=== PATIENT | male | born 1975 | race Caucasian/White ===

== ENCOUNTER 2016-09-05 17:35 | Emergency (ER) | payer OTHER ==
[~2016-09-05] VITALS: Ht 185.4 cm; Wt 129.6 kg
[~2016-09-05 17:35] MED LIST: IBUP800T28 PO; LOSA100T29 PO; NAPR500T PO
[2016-09-05 17:38] VITALS: BP 152/92; PULSE 79; RESP 20; O2SAT 96
--- NOTE | 2016-09-05 17:45 | ED.REPORT ---
HPI-Chest Pain Under 40 Date of Service Sep 05, 2016 ED Provider: Keo Jonse DO A 41 year old male with a history of smoking and hypertension is referred to the ED from Urgent Care complaining of substernal chest pain and back pain. The pain is concentrated in the middle of his chest and back and is rated at a 7/10 at its worse. The pt noticed the pain last week, stating that it began suddenly and has been occurring intermittently since. The pain is not worsened by eating or exertion. His occupation requires movement, so he is concerned that he may have injured himself through this. The pt has a family history of hypertension and cardiac disease. He denies alcohol use or pancreatic disease, as well as lower extremity edema. His last meal was at 14:00. The pt drinks coffee but denies chronic medication use. Nursing Notes Stated Complaint: LAB WORK Chief Complaint: Chest Pain Nursing Notes Reviewed: Yes Allergies: Coded Allergies: [place] (Verified Allergy, Severe, mouth swelling, 09/19/09) Anderson Drew Oil (Verified Allergy, Severe, Asthma, 09/19/09) [place] (Verified Allergy, Severe, Oral Swelling, 09/19/09) Scheduled Naproxen-Expunged Drug, Do Not Renew! (Naprosyn-Expunged Drug, Do Not Renew!) 500 Mg Tablet 500 MG PO BID Scheduled PRN Ibuprofen (Ibuprofen) 800 Mg Tablet 800 MG PO TID PRN PRN For Pain Miscellaneous Medications Losartan Potassium (Losartan Potassium) 100 Mg Tablet 100 MG PO General Time Seen by MD: 17:45 Chief Complaint Chest pain Hx Obtained From: Patient Arrived By: Walk-in Sudden in Onset?: Yes Onset Occurred: 1 week ago Symptom Duration: Intermittent Recent Healthcare: No recent hospitalization, Recent doctor visit Similar Sx Previous: No Past Medical History Past Medical History Reports: Hypertension Past Surgical History unspecified Family History hypertension cardiac disease Smoking History Current Every Day Smoker (3/4 pack per day) Social History Alcohol Use: Denies alcohol use Ambulatory Status Independent Review of Systems Constitutional: Denies: Fever Respiratory: Denies: Non-productive cough, Shortness of breath Cardiovascular: Reports: Chest pain, Denies: Edema GI: Denies: Abdominal pain Musculoskeletal: Reports: Back pain Skin: Denies Rash Complete sys rev & neg: except as marked. Physical Exam Initial Vital Signs Vital Signs (First) Date Time Temp Pulse Resp B/P Pulse Ox O2 Delivery O2 Flow Rate FiO2 09/05/16 17:38 36.3 79 20 152/92 96 09/05/16 17:47 Room Air Initial VS: Reviewed General/Constitutional: Awake, Alert Respiratory / Chest: Atraumatic, Breath sounds NL, Breath sounds = bilat, No respiratory distress no reproducible chest pain Cardiovascular: Heart rate NL, Regular rhythm, Heart sounds NL Neck: Atraumatic, Supple, Full range of motion Abdomen: Atraumatic, Soft, Non-tender no epigastric tenderness to palpation Back: Atraumatic, Full range of motion Lower Extremity / Pelvis / MS: Atraumatic, Full range of motion Skin: Atraumatic, Color NL, No rash, Warm, Dry Neurologic: Oriented X3, Speech NL, No motor deficits, No sensory deficits Psychiatric: Affect NL, Mood NL Head / Eyes: Atraumatic, Normocephalic, PERRL, EOMI ENT: Atraumatic, Airway patent, Mucous membranes moist Upper Extremity / MS: Atraumatic, Full range of motion Interpretation & Diagnostics Interpretation & Diagnostics: Chest/Abdomen CT: IMPRESSION: 1. No acute process. No evidence of aortic dissection, nor aneurysm. 2. Right pleural nodules as described above; followup is recommended as below. Fleischner Society criteria for SOLID lung nodule followup. Nodule size (mm)Low-risk patientHigh-risk [id number] follow-up neededFollow-up at 12 mo; if no change, no further follow-up>4-7Evtric-qe CT at 12 mo; if no change, no further follow-up needed.Initial follow-up CT at 6-12 mo, then 18-24 mo if no change. >6-8Initial follow-up CT at 6-12 mo, then 18-24 mo if no change. Initial follow-up CT at 3-6 mo, then 9-12 mo and 24 mo if no change. >8Follow-up CT at 3, 9, 24 mo. Or PET and/or biopsy.Same as for low-risk pts. Dictated by: Huan Montez M.D. on 09/05/2016 at 19:11 Approved by: Huan Montez M.D. on 09/05/2016 at 19:14 Lab Results Interpretation Result Diagram: 09/05/16 1750 09/05/16 1750 Test 09/05/16 17:50 White Blood Count 7.3th/mm3 (3.8-10.1) Red Blood Count 5.24mil/mm3 (4.40-5.80) Hemoglobin 14.9g/dL (13.8-17.2) Hematocrit 44.5% (41.0-50.0) Mean Corpuscular Volume 84.9fL (81-100) Mean Corpuscular Hemoglobin 28.4pg (27.0-35.0) Mean Corpuscular Hemoglobin Concent 33.5% (32.0-37.0) Red Cell Distribution Width 13.2% (12.3-15.4) Platelet Count 215bil/L (150-400) Neutrophils (%) (Auto) 51.7% (40-74) Lymphocytes (%) (Auto) 33.8% (14-46) Monocytes (%) (Auto) 8.3% (4-12) Eosinophils (%) (Auto) 5.8% (0-5) Basophils (%) (Auto) 0.3% (0-3) Sodium Level 139mEq/L (134-144) Potassium Level 4.0mEq/L (3.5-5.2) Chloride Level 102mEq/L (97-108) Carbon Dioxide Level 23mmol/L (18-29) Blood Urea Nitrogen 15mg/dL (6-20) Creatinine 0.93mg/dL (0.76-1.27) Estimat Glomerular Filtration Rate 96mL/min (>59) Glucose Level 86mg/dL (60-99) Calcium Level 8.7mg/dL (8.5-10.1) Magnesium Level 2.0mg/dL (1.6-2.6) Total Bilirubin 0.2mg/dL (0.0-1.2) Aspartate Amino Transf (AST/SGOT) 28U/L (0-50) Alanine Aminotransferase (ALT/SGPT) 44U/L (0-44) Alkaline Phosphatase 51U/L (25-150) Troponin T < 0.010ug/L (0.0-0.011) Total Protein 7.1g/dL (6.4-8.4) Albumin 4.2g/dL (3.4-5.0) Lipase 36U/L (13-60) ECG Interpretation ECG Interpretation: normal sinus rhythm with a rate of [address] changes Time: 17:53 Interpreted by: ED physician X-Ray Chest Interpretation Chest Xray Interpretation: IMPRESSION: No acute process. Dictated by: Huan Montez M.D. on 09/05/2016 at 18:50 Approved by: Huan Montez M.D. on 09/05/2016 at 18:51 Interpretation / Wet Read by: Interpret - Radiologist Re-Eval/Medical Decision Med Decision/Clinical Course 41-year-old male with a history of tobacco abuse and hypertension presents with 7 out of 10 substernal chest pain/epigastric pain that radiates to his mid thoracic back since this morning. He is sent here for urgent care for further evaluation. I elected to rule out an aortic dissection with CT scan which did return negative. He was found to have 2 pulmonary nodules that will need further observation and I have discussed this with him. He will talk with Dr. Hartmann about this. I also gave him a copy of his CT report. His EKG was unremarkable as well as his troponin. He may benefit from a stress test in follow-up. The thing that relieved his pain was a GI cocktail. I suspect that he has gastritis or an ulcer and that treating this with PPIs will improve his symptoms. Patient understands and agrees with this plan. He will start on omeprazole as an outpatient and follow-up with his PCP Source of Hx: Old records Re-Evaluation/Progress : Time of Eval: 20:07 Patient Status: Condition improved Re-Evaluation/Progress Note: Pt rechecked, who is feeling significantly better. Radiology results, diagnosis, and the plan for discharge are discussed. The pt understands and agrees with the plan. All questions are addressed at this time. Counseled Regarding: Diagnosis, Lab results, Need for follow-up, When/why to return to ED Discharge & Departure Primary Impression: Chest pain Chest pain type: unspecified Qualified Code: R07.9 - Chest pain, unspecified Additional Impressions: Back pain Back pain location: thoracic back pain Chronicity: acute Back pain laterality: midline Qualified Code: M54.6 - Pain in thoracic spine Gastritis Lung nodule, multiple Ruled Out: Aortic dissection, Acute coronary syndrome Disposition: Home Discharge Condition All VS Reviewed: Yes Condition: Stable Patient Instructions: Gastritis (ED) Additional Instructions: Thank you for entrusting us with your care today. Your testing today was reassuring and shows no emergent cause for your pain. Follow up with your primary care physician within the next two weeks for further evaluation which might include stress test. You will need a follow up scan to evaluate lung nodules visualized in your radiology imaging. Please try to quit smoking. This will help both your stomach and your lungs. Take the acid mallorie medicine as we discussed today. Return to the emergency department if you develop any new or concerning symptoms. Referrals: Hernesto Hartmann MD (PCP) Li Attestation Portions of this note were transcribed by Kale Bernal I, Dr. Jones personally performed the history, physical exam and medical decision-making; I reviewed and confirmed the accuracy of the information in the transcribed note. Signed by: Li Garg, 09/05/16 and 20:13. copies to: Hernesto Hartmann MD, Gary R DO Sep 05, 2016 17:45 KALE BERNAL Sep 05, 2016 17:50
[2016-09-05 17:47] VITALS: BP 152/92; PULSE 79; RESP 20; O2SAT 96
[2016-09-05 18:02] LABS: BASOPHILS % (AUTO) 0.3 % (0-3); EOSINOPHILS % (AUTO) 5.8 % (0-5); MONOCYTES % (AUTO) 8.3 % (4-12); Mean Corpuscular Hemoglobin 28.4 pg (27.0-35.0); Mean Corpuscular Volume 84.9 fL (81-100); NEUTROPHILS % (AUTO) 51.7 % (40-74); Platelet Count 215 bil/L (150-400)
[2016-09-05] MEDS ORDERED: Alum-Mag Hydrox-Simeth 30 mL Suspension PO ONE (18:05)
[2016-09-05 18:24] VITALS: BP 143/90; PULSE 74; RESP 17; O2SAT 97
[2016-09-05 18:27] LABS: TROPONIN T < 0.010 ug/L (0.0-0.011)
--- NOTE | 2016-09-05 18:52 | DRSVH ---
PROCEDURE: X-RAY CHEST ONE VIEW, PORTABLE ([id number]) INDICATIONS: Chest pain TECHNIQUE: One view of the chest was acquired. COMPARISON: [facility], , [facility] CXR MIN 3VW (LT), 01/15/2015, 15:05. FINDINGS: Surgical changes and devices: None. Lungs and pleura: No pleural effusions or pneumothorax. Lungs are clear. Mediastinum: Mediastinal contours appear normal. Heart size is normal. Bones and chest wall: No suspicious bony lesions. Overlying soft tissues appear unremarkable. IMPRESSION: No acute process. Dictated by: Huan Montez M.D. on 09/05/2016 at 18:50 Approved by: Huan Montez M.D. on 09/05/2016 at 18:51
[2016-09-05 19:16] VITALS: BP 148/96; PULSE 72; RESP 15; O2SAT 98
--- NOTE | 2016-09-05 19:16 | DRSVH ---
PROCEDURE: CT ANG CHEST/ABD W/WO CONTRAST ([id number]) INDICATIONS: SEVERE CHEST PAIN RADIATING TO BACK TECHNIQUE: Precontrast 5 mm thick sections acquired from the lung apices to the iliac crests. After the adminis tration of intravenous contrast, 3 mm thick sections again acquired from the lung apices to the iliac crests. 3-dimensional maximum intensity projection (MIP) oblique sagittal and coronal reformats wer e then acquired, and/or 3-dimensional volume rendering reformats. For radiation dose reduction, the following was used: automated exposure control. COMPARISON: None. FINDINGS: Image quality: Excellent. AORTA: The thoracoabdominal aorta is widely patent, with no evidence of aneurysm, and dissection, no r stenosis. CHEST: Lungs and pleura: No acute airspace opacities. 7 mm diameter subpleural nodule involving the right a nterior minor fissure. 9 mm diameter pleural nodule involving the right mid minor fissure. No pleural effusions or pneumothorax. Central and peripheral airways are patent and normal in caliber. Mediastinum: Heart size is normal. No pericardial effusion. No mediastinal or hilar adenopathy by size criteria. Central pulmonary arteries are normal in size. Esophagus is normal in caliber. No h iatal hernias. Bones and chest wall: No axillary adenopathy by size criteria. Thyroid gland is within normal limit s. No suspicious bony lesions. No vertebral body compression fractures. ABDOMEN: Vasculature: Celiac trunk and mesenteric arteries are patent. Renal arteries are also patent. Solid organs: Liver and spleen are normal in size. Gallbladder is grossly unremarkable. Biliary sy stem is non dilated. Pancreas enhances normally. No adrenal nodules. Both kidneys are normal in si ze and enhancement, without hydronephrosis. Peritoneum and bowel: No free fluid or air. Bowel loops are normal in caliber and wall thickness. The appendix is normal as visualized. Nodes and vessels: No retroperitoneal or mesenteric adenopathy by size criteria. Inferior vena cava is normal in morphology. Bones: No suspicious bony lesions. No vertebral body compression fractures. Miscellaneous: No ventral hernias. IMPRESSION: 1. No acute process. No evidence of aortic dissection, nor aneurysm. 2. Right pleural nodules as described above; followup is recommended as below. Fleischner Society criteria for SOLID lung nodule followup. Nodule size (mm)Low-risk patientHigh-risk [id number] follow-up neededFollow-up at 12 mo; if no saini e, no further follow-up>8-3Nhrysa-oa CT at 12 mo; if no change, no further follow-up needed.Initial f ollow-up CT at 6-12 mo, then 18-24 mo if no change. >6-8Initial follow-up CT at 6-12 mo, then 18-24 mo if no change. Initial follow-up CT at 3-6 mo, then 9-12 mo and 24 mo if no change. >8Follow-up CT at 3, 9, 24 mo. Or PET and/or biopsy.Same as for low-risk pts. Dictated by: Huan Montez M.D. on 09/05/2016 at 19:11 Approved by: Huan Montez M.D. on 09/05/2016 at 19:14
[2016-09-05] MEDS ORDERED: Pantoprazole 40 mg ER24 Tablet PO ONE (20:15)
[2016-09-05] MEDS ORDERED: OMEP40CA36 PO (20:32)
[2016-09-05 20:40] VITALS: BP 140/104; PULSE 63; RESP 13; O2SAT 97
== END 2016-09-05 20:42 | disposition home or self-care (01) ==
LOC: SED 17:35
DX: R07.9 Chest pain, unspecified (principal); M54.6 Pain in thoracic spine; K29.70 Gastritis, unspecified, without bleeding; R91.8 Other nonspecific abnormal finding of lung field; I10 Essential (primary) hypertension; F17.200 Nicotine dependence, unspecified, uncomplicated; Z82.49 Family history of ischemic heart disease and other diseases of the circulatory system
CPT/HCPCS: 36415; 71010; 71275; 74175; 80053; 83690; 83735; 84484; 85025; 93005; 99285; Q9967